=== PATIENT | female | born 1980 | race Caucasian/White ===

== ENCOUNTER 2016-12-13 21:15 | Emergency (ER) | payer BC, OTHER ==
[~2016-12-13] VITALS: Ht 162.6 cm; Wt 90.7 kg
[2016-12-13 21:44] LABS: Urine Bacteria NONE SEEN /hpf (None Seen); Urine Blood Negative /uL (Negative); Urine Specific Gravity 1.005 (1.001-1.035); Urine WBC <1 /hpf (0 - 5)
[2016-12-13 22:06] LABS: Basophils # (auto) 0.1 uL; Basophils % (auto) 0.9 % (0.0-2.0); Eosinophils # (auto) 0.2 uL; Hemoglobin 14.4 g/dL (12.2-16.2); Lymphocytes # (auto) 3.6 uL; Lymphocytes % (auto) 43.5 % (10.0-50.0); Mean Corpuscular Hemoglobin 30.8 pg (28.0-32.0); Mean Corpuscular Hgb Conc. 34.4 g/dL (32.0-36.0); Mean Corpuscular Volume 89.6 fL (80.0-100.0); Monocytes # (auto) 0.8 uL; Monocytes % (auto) 9.3 % (0.0-12.0); Neutrophils # (auto) 3.6 uL; Neutrophils % (auto) 43.3 % (37.0-80.0); Nucleated Red Blood Cells % 0.1 %; Platelet Count (auto) 257 10^3/uL (140-450); Red Blood Cells 4.69 10^6/uL (4.0-5.20); White Blood Cell 8.3 10^3/uL (4.4-10.8)
[2016-12-13 22:22] LABS: Alanine Aminotransferase 58 U/L (13-56); Albumin 3.9 g/dL (3.4-5.0); Anion Gap 10 (5-15); Aspartate Aminotransferase 25 U/L (15-37); BUN/Creatinine Ratio 12.4; Blood Urea Nitrogen 11 mg/dL (7-18); Calcium 8.9 mg/dL (8.5-10.1); Carbon Dioxide 26 mmol/L (21-32); Chloride 105 mmol/L (98-107); GFR African American 92 mL/min; GFR Non-African American 76 mL/min; Glucose 99 mg/dL (74-106); INR 0.95 (0.9-1.15); Potassium 3.6 mmol/L (3.5-5.1); Prothrombin Time 10.3 sec (9.37-12.3); Sodium 141 mmol/L (136-145)
[2016-12-13 22:27] LABS: Alkaline Phosphatase 72 U/L (45-117); Total Protein 7.5 g/dL (6.4-8.2)
[2016-12-14 00:54] VITALS: BP 135/70
[2016-12-14] MEDS ORDERED: LORazepam 0.5 MG TAB PO ONE (01:45)
== END 2016-12-14 03:02 | disposition home or self-care (01) ==
LOC: ER 21:15
DX: F41.9 Anxiety disorder, unspecified (principal)
CPT/HCPCS: 36415; 71020; 80053; 81001; 81025; 84484; 84702; 85025; 85610; 85730; 93005